=== PATIENT | female | born 1970 | race Caucasian/White ===

== ENCOUNTER → 2019-07-13 | Outpatient (CLI) | payer BC, OTHER ==
[~2019-07-13] MED LIST: AMANTADINE100 M1 PO; AMIGESIC500 MG PO; ASPIRIN EC81 M1 PO; ASPIRIN325 PO; BUPROPION PO; CARDIZEM CD180 MG PO; CARDIZEM CD240 MG PO; CELEBREX PO; CELEBREX400 MG PO; CELEXA 20 MG TA20 MG PO; CYANOCOBAL-LEV1 EACH PO; DOXYCYCLINE 10100 M1 PO; EFFEXOR XR75 MG PO; ENOXAPARIN100 MG/1 M PO; EXCEDRIN CAPLE1 EACH PO; FISH OIL 1,001000 M2 PO; FLECAINIDE ACE100 MG PO; FOLIC ACID1 MG PO; GLUCOSAMINE HC500 MG PO; HEALTHY HEART1 EAC1 PO; HYDROXYCHLOROQ200 M1 PO; IBUPROFEN 200200 M1 PO; LEVOTHYROXIN0.112 M1 PO; LEXAPRO PO; LEXAPRO20 MG PO; METFORMIN HCL500 MG PO; METHOTREXATE 22.5 M1 PO; MULTAQ400 MG PO; MYSOLINE50 MG PO; NAPROSYN500 MG PO; NEURONTIN600 MG PO; NORCO 5-325 TA1 EACH PO; PACERONE 200 M200 M1 PO; PERCOCET 10-321 EACH PO; PRADAXA150 MG PO; PRILOSEC 20 MG20 MG PO; SYNTHROID PO; TAMBOCOR PO; TRAMADOL 50 MG50 MG PO; ULTRA-LIGHT RO1 EACH; VITAMIN D-32000 UNIT PO; VOLTAREN GEL 1100 G2 TOP; WELLBUTRIN SR150 MG PO; XARELTO10 MG PO
== END ==
LOC: CAT 15:51
DX: R10.32 Left lower quadrant pain (principal); R50.9 Fever, unspecified; R11.10 Vomiting, unspecified

== ENCOUNTER → 2020-03-05 | Outpatient (CLI) | payer BC, OTHER | LOC: SJCVCIMAG 10:22 | PROVIDERS: ATTEND Internal Medicine Cardiovascular Disease | DX: I08.1 Rheumatic disorders of both mitral and tricuspid valves (principal); I48.92 Unspecified atrial flutter ==

== ENCOUNTER 2020-06-10 23:03 | Emergency (ER) | payer BC, OTHER ==
[~2020-06-10] VITALS: Ht 165.1 cm; Wt 145.2 kg
[2020-06-10] MEDS ORDERED: PRISTIQ100 MG PO (23:09)
[2020-06-10] MEDS ORDERED: SULFASALAZINE500 M5 PO (23:11)
[2020-06-10] MEDS ORDERED: DESYREL150 MG PO (23:11)
[2020-06-10] MEDS ORDERED: PREMPRO 0.3 MG1 EACH (23:11)
[2020-06-10] MEDS ORDERED: INDERAL LA120 M1 PO (23:12)
[2020-06-10 23:34] LABS: ABSOLUTE NEUTROPHILS 9.3 thou/uL (1.4-8.2); BASOPHILS 0.3 % (0.0-2.0); HEMATOCRIT 40.5 % (37.0-47.0); HEMOGLOBIN 13.4 gm/dL (12.0-15.0); LYMPHOCYTES 11.2 % (24.0-44.0); MCH 33.9 pg (26.0-34.0); MCV 102.6 fL (80.0-100.0); MONOCYTES 3.8 % (1.0-8.0); PLATELET COUNT 319 thou/uL (150-400); POLYS 84.7 % (36.0-66.0); RBC 3.95 mil/uL (4.20-5.00); RDW 14.3 % (10.5-14.5)
[2020-06-11 00:06] LABS: ANION GAP 12 mmol/L (7-16); BUN 17 mg/dL (7-18); CALCIUM 9.4 mg/dL (8.5-10.1); CHLORIDE 103 mmol/L (98-107); CO2 26 mmol/L (21-32); CREATININE 0.9 mg/dL (0.6-1.0); GLUCOSE 149 mg/dL (74-106); SODIUM 141 mmol/L (136-145)
[2020-06-11 00:17] LABS: TROPONIN-I <0.06 ng/mL (<0.06)
[2020-06-11 00:52] VITALS: BP 145/73
--- NOTE | 2020-06-11 07:49 | EKG ---
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: [place] [id number] : 1970 Requested By: Tan Dai Order Number: [id number] MD: Yamil Martino Measurements Intervals [place] Rate: 68 P: 56 NC: 203 QRS: 41 QRSD: 89 T: 26 QT: 407 QTc: 433 Interpretive Statements Sinus rhythm Borderline prolonged NC interval Baseline wander in lead(s) V1 Compared to ECG 09/15/2014 13:17:30 T-wave abnormality no longer present Electronically Signed On 06-11-2020 7:49:21 CDT by Yamil Martino [email or web address] <ELECTRONICALLY SIGNED> By: aYmil Martino MD, FAC 06/11/20 0749 [id number] Yamil Martino MD, FAC /EPI
== END 2020-06-11 00:54 | disposition home or self-care (01) ==
LOC: ER 23:03
PROVIDERS: Emergency Medicine
DX: R07.9 Chest pain, unspecified (principal); M79.662 Pain in left lower leg; R22.42 Localized swelling, mass and lump, left lower limb; K21.9 Gastro-esophageal reflux disease without esophagitis; E03.9 Hypothyroidism, unspecified; Z90.89 Acquired absence of other organs; Z79.899 Other long term (current) drug therapy

== ENCOUNTER → 2020-07-05 | Outpatient (CLI) | payer BC, OTHER ==
[~2020-07-05] MED LIST changes: +DESYREL150 MG PO; +INDERAL LA120 M1 PO; +PREMPRO 0.3 MG1 EACH; +PRISTIQ100 MG PO; +SULFASALAZINE500 M5 PO
== END ==
LOC: SJCVCIMAG 07:12
PROVIDERS: ATTEND Internal Medicine Cardiovascular Disease
DX: I48.92 Unspecified atrial flutter (principal); R07.9 Chest pain, unspecified